=== PATIENT | female | born 2000 | race Caucasian/White ===

== ENCOUNTER 2022-05-04 11:50 | Emergency (ER) | payer BC, SELFPAY ==
--- NOTE | 2022-05-04 11:58 | ED.GENADULT ---
HPI - General Adult General Chief complaint: Upper Respiratory Infection Stated complaint: sorethroat Time Seen by Provider: 05/04/22 11:58 Source: patient Mode of arrival: ambulatory Limitations: no limitations History of Present Illness HPI narrative: 21-year-old female patient presents to [facility] with complaints of 3 day history of fullness to the ears, sore throat drainage. Patient states she coughs intermittently at times. Patient states she was told that she should be on antihistamines however she states she took him for 3 months at a time at 1 point and felt like it did not do anything so stopped taking antihistamines. Patient denies taking any [id number] medications for her symptoms at this time. Denies fevers, body aches or chills. Denies headaches, abdominal pain, nausea, vomiting or diarrhea. Related Data Home Medications Medication Instructions Recorded Confirmed No Home Medications 05/04/22 05/04/22 Allergies Allergy/AdvReac Type Severity Reaction Status Date / Time No Known Allergies Allergy Verified 05/04/22 12:12 Review of Systems Review of Systems: CONSTITUTIONAL: Denies fever, chills, or sweats. EYES: Denies visual changes, redness, or discharge. ENT: Positive rhinorrhea, congestion, sore throat, andotalgia. CARDIOVASCULAR: Denies chest pain, palpitations, or edema. RESPIRATORY: positive cough , denies dyspnea. GASTROINTESTINAL: Denies abdominal pain, nausea, vomiting, or diarrhea. GENITOURINARY: Denies dysuria or hematuria. SKIN: Denies rash or itching. MUSCULOSKELETAL: Denies back pain, joint pain, or myalgia. NEUROLOGIC: Denies headache, numbness, or weakness. PSYCHIATRIC: Denies anxiety or depression. [facility] Past Medical History Medical History (Updated 05/04/22 @ 12:32 by YANELIS Paiz) ADHD Asthma Comments At the time of my signature I agree with nursing past medical history, surgical, social, and family history. There is no relevant family history pertinent to the presenting complaint. Exam Narrative: GENERAL: Well-appearing, well-nourished, and in no acute distress. HEAD: Normocephalic, atraumatic. EYES: PERRLA and EOMI. ENT: Nares with erythema and edema noted bilateral, no rhinorrhea or epistaxis. Mucous membranes moist. posterior pharynx with no erythema, tonsillar enlargement, exudates or lesions present. Bilateral TMs are clear no erythema foreign bodies the canal. NECK: Supple. No lymphadenopathy CHEST: Clear to auscultation. No respiratory distress. HEART: Regular rate and rhythm. No murmur heard. Normal peripheral pulses. ABDOMEN: Soft, nontender, nondistended, normal active bowel sounds. EXTREMITIES: Normal range of motion. No edema. SKIN: Warm, dry, no rash. NEURO: No focal deficits. Alert and oriented x3. Course Course Level of Care: Express Care Visit Vital Signs Vital signs: Vital Signs Temperature 36.5 C 05/04/22 12:14 Pulse Rate 71 05/04/22 12:14 Respiratory Rate 16 05/04/22 12:14 Blood Pressure 111/69 05/04/22 12:14 Pulse Oximetry 100 05/04/22 12:14 Oxygen Delivery Room Air 05/04/22 12:14 Temperature 36.5 C 05/04/22 12:14 Pulse Rate 71 05/04/22 12:14 Respiratory Rate 16 05/04/22 12:14 Blood Pressure 111/69 05/04/22 12:14 Pulse Oximetry 100 05/04/22 12:14 Oxygen Delivery Room Air 05/04/22 12:14 Vital signs reviewed Medical Decision Making MDM Narrative Medical decision making narrative: Notify patient that she is negative today for strep. Her symptoms sound a lot like allergic rhinitis or allergies. Discussed with patient she can take [id number] antihistamine such as Zyrtec, Claritin or Libby apparent with a Flonase to help with symptoms. Make sure that she is using humidified air next to her bed at night and drink plenty of fluids. Patient verbalized understanding denies any other questions or concerns at this time. Differential Diagnosis Differential Diagnosis:
[2022-05-04 12:14] VITALS: BP 111/69; PULSE 71; RESP 16; TEMP 36.5; O2SAT 100
== END 2022-05-04 12:33 | disposition home or self-care (01) ==
PROVIDERS: Emergency Provider Nurse Practitioner Family
DX: J30.9 Allergic rhinitis, unspecified (principal)
CPT/HCPCS: 87081; 87880; 99213; G0463

== ENCOUNTER 2023-08-09 13:39 | Emergency (ER) | payer BC, SELFPAY ==
[2023-08-09 13:50] VITALS: BP 112/74; PULSE 71; RESP 16; TEMP 36.2; O2SAT 99
[2023-08-09 13:51] VITALS: BP 112/74; PULSE 71; RESP 16; TEMP 36.2; O2SAT 99
--- NOTE | 2023-08-09 14:23 | ED.WOUNDLAC ---
HPI - Wound/Laceration General Chief Complaint: Wound/Laceration Stated Complaint: toe nail ripped off Source: patient Mode of arrival: ambulatory Limitations: no limitations History of Present Illness HPI narrative: 22-year-old female presented complaint left great toenail avulsion after injury 3 days ago. She states the toenail is acrylic, attached to a small portion of her regrowing nail. She states at the time of injury she was able to wrap the toenail, and says it is not as loose. Pt is concerned for risk of infection. The toe pain and swelling the presented after the initial injury is now resolved per patient. She has soaked the toe in Epsom salt. Denies numbness, tingling, weakness or deformity. Related Data Home Medications Medication Instructions Recorded Confirmed levonorgestrel 21 mcg/24 hr (up to 1 device intrauterine ONCE 08/09/23 08/09/23 8 years) 52 mg intrauterine device (Mirena) Allergies Allergy/AdvReac Type Severity Reaction Status Date / Time No Known Allergies Allergy Verified 08/09/23 13:51 Review of Systems Review of Systems: CONSTITUTIONAL: Denies body aches, fever, chills, or sweats. CARDIOVASCULAR: Denies chest pain, palpitations, or edema. RESPIRATORY: Denies cough or dyspnea. SKIN: reports toe nail injury MUSCULOSKELETAL: Denies back pain, joint pain, or myalgia. NEUROLOGIC: Denies numbness, tingling, or weakness. [facility] Past Medical History Medical History ADHD Asthma Comments At time of signature, I have reviewed and agree with nursing past medical, surgical, social and family history unless otherwise noted. Please see nursing chart for further information. There is no relevant family history pertinent to the presenting complaint Exam Narrative: GENERAL: Well-appearing ENT: Mucous membranes moist. Oropharynx without edema, erythema or lesions. NECK: Supple. No lymphadenopathy CHEST: Clear to auscultation. HEART: Regular rate and rhythm. SKIN: Warm, dry. Left great toenail has acrylic nail in place, minimally loose. No swelling or erythema, nontender, no drainage NEURO: Alert and oriented x3. Course Course Emergency Course: Patient is aware of diagnosis, understands and agrees to treatment plan. Anticipatory guidance given. Patient agrees to follow-up as directed and is aware of reasons to seek care at the emergency department. Portions of this record may have been created with voice recognition software Level of Care: Express Care Visit Vital Signs Vital signs: Vital Signs Temperature 97.1 F L 08/09/23 13:50 Pulse Rate 71 08/09/23 13:50 Respiratory Rate 16 08/09/23 13:50 Blood Pressure 112/74 08/09/23 13:50 Pulse Oximetry 99 08/09/23 13:50 Temperature 97.1 F L 08/09/23 13:51 Pulse Rate 71 08/09/23 13:51 Respiratory Rate 16 08/09/23 13:51 Blood Pressure 112/74 08/09/23 13:51 Pulse Oximetry 99 08/09/23 13:51 Reviewed MDM - Wound/Laceration MDM Narrative Medical decision making narrative: Discussed physical exam findings, acrylic nail is in place firmly; pt will f/u with podiatry. Rx abx. Advised supportive measures and signs/symptoms to go to the ER. Pt is appropriate for outpt treatment and f/u. Differential Diagnosis Differential diagnosis: Likely other (nail avulsion, paronychia, fracture, dislocation) Discharge Plan Discharge Clinical Impression: Avulsed toenail Patient Disposition: Home, Self-Care Condition: Stable Instructions: Antibiotic Form, Nail Avulsion (ED) Additional Instructions: Keep the area clean and dry - cleanse with warm water and mild soap and allow to fully dry. Soak toe in warm soapy water 2 to 3 times a day Ok to apply neosporin to the site You can keep it covered with a Band-Aid keep the nail in place [facility] [address], [place], [place]
== END 2023-08-09 14:42 | disposition home or self-care (01) ==
PROVIDERS: Emergency Provider Nurse Practitioner Family
DX: S91.202A Unspecified open wound of left great toe with damage to nail, initial encounter (principal); X58.XXXA Exposure to other specified factors, initial encounter; J45.909 Unspecified asthma, uncomplicated
CPT/HCPCS: 99213; G0463

== ENCOUNTER 2023-11-10 14:32 | Emergency (ER) | payer BC, SELFPAY ==
[2023-11-10 14:43] VITALS: BP 107/70; PULSE 69; RESP 16; TEMP 37; O2SAT 100
--- NOTE | 2023-11-10 14:44 | ED.GENADULT ---
HPI - General Adult General Chief complaint: Urogenital-Female Stated complaint: FREQUENT URINATION/ABD CRAMPING/HEADACHE Time Seen by Provider: 11/10/23 14:44 Source: patient, RN notes reviewed and old records reviewed Mode of arrival: ambulatory Limitations: no limitations History of Present Illness HPI narrative: 22-year-old female to [facility] for complaint of intermittent lower abdominal cramping and intermittent nausea the past 3 months. Patient reports that she saw OBGYN since onset of symptoms and had an ultrasound her ovaries completed. Patient reports that ovaries and IUD placement were both cleared through ultrasound. Patient also endorsing frequent urination over past 2 weeks. Patient denies vomiting, bowel changes, fever, flank pain, allergies, pertinent medical history. Patient able to tolerate fluids by mouth. Patient resting comfortably in exam room in no acute distress. Respirations even and nonlabored. Related Data Home Medications Medication Instructions Recorded Confirmed levonorgestrel 21 mcg/24 hr (up to 1 device intrauterine ONCE 08/09/23 11/10/23 8 years) 52 mg intrauterine device (Mirena) Allergies Allergy/AdvReac Type Severity Reaction Status Date / Time No Known Allergies Allergy Verified 11/10/23 16:59 Review of Systems Review of Systems: All systems reviewed & are unremarkable except as noted in HPI and below Constitutional: Constitutional: Reports no additional constitutional complaints Eyes: Eyes: Reports no additional eye complaints ENT: Reports system reviewed and no additional complaints, except as documented Cardiovascular: Cardiovascular: Reports no additional cardiovascular complaints, Denies chest pain and Denies dyspnea Respiratory: Respiratory: Reports no additional respiratory complaints, Denies cough and Denies dyspnea Gastrointestinal: Gastrointestinal: Reports GI cramping and Reports nausea Genitourinary: Comments: Frequent urination Musculoskeletal: Musculoskeletal: Reports no additional musculoskeletal complaints Neurologic: Reports system reviewed and no additional complaints, except as documented Psychiatric: Psychiatric: Reports no additional psychiatric complaints PMFSH Past Medical History Medical History ADHD Asthma Comments At the time of my signature, I reviewed and agree with the nursing past medical, surgical, social, and family history. There is no relevant family history pertinent to the patient complaint. Exam Const: General: cooperative, healthy appearing, no acute distress, well developed, alert, well groomed and well nourished Nutritional Appearance: well nourished Orientation/consciousness: patient oriented x3 Limitations: no limitations HENMT: Head: normal to inspection Ears: external ears normal Face/Nose/Sinus: Normal external nose present, Normal nares present, normal facial exam, No erythema and No edema Face and sinus: normal facial exam, no erythema and no edema Mouth: Yes Normal oral and palatal mucosa present Eyes: General: appearance normal, both eyes and all related structures Neck: Neck: normal visual inspection, full ROM and no meningeal signs Lymphatic: no lymphadenopathy noted and no lymphedema noted Chest: Chest palpation & inspection: normal inspection of the chest Resp: Effort & Inspection: normal respiratory effort and able to speak in complete sentences Auscultation: clear to auscultation bilaterally Cardio: Jugular venous distension: no JVD Rate: regular rate Rhythm: regular rhythm GI: Inspection: normal to inspection, non-distended, no visible herniation, no visible pulsation and No visible peristalsis GI Palp: Yes Soft to palpation and No Guarding due to palpation present (GI) : General: Yes no CVA tenderness Back/Spine/Pelvis: Cervical Spine: cervical ROM normal Skin: General skin exam: normal color, no rashes or
[2023-11-10 14:52] LABS: EDUAAPPEAR Clear; EDUABILI Negative (Negative); EDUABLOOD Negative (Negative); EDUACOLOR1 Light/Pale; EDUAGLUCOSE Negative (Negative); EDUAKETONE Negative (Negative); EDUALEUKO Negative (Negative); EDUANITRATE Negative (Negative); EDUAPH 5.5; EDUAPROTEIN Negative (Negative); EDUASPGRAVITY 1.015; EDUAUROBILI 0.2
[2023-11-10 15:45] LABS: EDCOVIDSCREEN Negative (Negative); EDINFLUASCREEN Negative (Negative); EDINFLUBSCREEN Negative (Negative)
== END 2023-11-10 16:03 | disposition home or self-care (01) ==
PROVIDERS: Emergency Provider Nurse Practitioner Family
DX: R10.9 Unspecified abdominal pain (principal); B34.9 Viral infection, unspecified; Z20.822 Contact with and (suspected) exposure to COVID-19; J45.909 Unspecified asthma, uncomplicated
CPT/HCPCS: 81003; 87635; 87804; 99212; G0463

== ENCOUNTER 2023-11-10 16:56 | Emergency (ER) | payer BC, SELFPAY ==
--- NOTE | ~2023-11-10 | CT_ITS ---
EXAMINATION: CT abdomen pelvis w con DATE: 11/10/2023 19:26 INDICATION: lower abdominal pain, diarrhea TECHNIQUE: Computed tomography (CT) of the abdomen and pelvis was performed with 100 mL Omnipaque-350 intravenous contrast. Automated exposure control and iterative reconstruction technique were employe d. The dose-length product was 330.99 mGy-cm. COMPARISON: None. FINDINGS: Lower thorax: Dependent atelectasis Liver: Normal. Biliary/Gallbladder: Gallbladder is normal. No bile duct dilation. Pancreas: No mass or duct dilation. Spleen: Normal. Adrenals:No mass. Kidneys: No suspicious mass, obstructing stone, or hydronephrosis. Simple left midpole cyst. GI tract: Moderate distal esophageal and gastric wall edema. No small or large bowel dilation. Normal appendix. Mesentery/Peritoneum: No ascites, mass, or free air. Retroperitoneum: No mass. Pelvis: Pelvic organs are within normal limits. IUD, in good position. Soft Tissues: Soft tissues and body wall unremarkable. Bones: No acute osseous finding. IMPRESSION: Moderate esophagitis/gastritis. Otherwise unremarkable CT abdomen and pelvis findings. Reviewed, dictated and finalized at location K.
[2023-11-10 17:03] VITALS: BP 112/76; PULSE 72; RESP 18; TEMP 36.4; O2SAT 99
--- NOTE | 2023-11-10 17:20 | ECG_ITS ---
Test Date: 2023-11-10 17:51:09 Measurements Intervals [place] Rate: 53 P: 42 CO: 151 QRS: 75 QRSD: 91 T: 49 QT: 439 QTc: 416 Interpretive Statements SINUS BRADYCARDIA MINIMAL Q WAVES- INF/LAT LEADS BASELINE ARTIFACT- I, II, AVR BORDERLINE ECG No previous ECG available for comparison Electronically Signed On 11-10-2023 20:29:14 CDT by Laron Greenberg D.O.
[2023-11-10 17:36] LABS: BEDSIDEPREGUCG Negative (Negative)
[2023-11-10 17:41] LABS: Basophils Percent Auto 0.5 % (0.2-1.2); Eosinophils Absolute Auto 0.1 K/mm3 (0-0.3); Eosinophils Percent Auto 1.1 % (0-4.4); Hematocrit 42.2 % (37.0-47.0); Hemoglobin 14.2 g/dL (12.0-15.0); Immature Granulocyte Absolute 0.01 K/mm3 (0.00-0.031); Immature Granulocyte Percent A 0.1 % (0-0.5); Lymphocytes Absolute Auto 3.17 K/mm3 (0.9-3.2); Mean Corpuscular HGB Conc 33.6 g/dl (32-36); Mean Corpuscular Hemoglobin 29.9 pg (26-34); Mean Corpuscular Volume 88.8 fl (80-100); Mean Platelet Volume 10.8 fl (7.4-10.4); Monocytes Absolute Auto 0.6 K/mm3 (0.1-0.6); Monocytes Percent Auto 6.8 % (2.6-8.5); Neutrophils Absolute Auto 4.3 K/mm3 (1.3-6.7); Neutrophils Percent Auto 52.5 % (45.5-73.1); Platelet Count Result 323 k/mm3 (150-375); Red Blood Count 4.75 M/mm3 (4.2-5.4); Red Cell Distribution Width 12.3 % (11.5-14.5); White Blood Count 8.1 K/mm3 (4.5-10.0)
[2023-11-10 17:43] LABS: Add Urine Microscopic? NO; Appearance Urine Clear (Clear); Bilirubin Urine Negative (Negative); Blood Urine Negative (Negative); Color Urine Yellow (Yellow); Glucose Urine UA Negative (Negative); Ketones Urine Negative (Negative); Leukocyte Esterase Ur Negative LEU/UL (Negative); Nitrate Urine Negative (Negative); Protein Urine Negative (Negative); Specific Grav Ur 1.017 (1.001-1.035); Urobilinogen Urine 0.2 mg/dL (<2.0); pH Urine 7.5 (5.0-9.0)
[2023-11-10 17:51] LABS: Alanine Aminotransferase 15 U/L (6-35); Albumin Level 4.8 g/dL (3.5-5.1); Alkaline Phosphatase 79 U/L (38-126); Anion Gap 11 mmol/L (4-12); Aspartate Amino Transferase 28 U/L (14-36); Bilirubin,Total 0.2 mg/dL (0.2-1.3); Blood Urea Nitrogen 16 mg/dL (7-17); Calcium 9.4 mg/dL (8.4-10.2); Carbon Dioxide 28 mmol/L (22-30); Chloride 99 mmol/L (98-107); Estimated CRCL calculation 82 ml/min; Estimated Glomerular Filt Rate > 60; Glucose 90 mg/dL (65-110); Lipase 204 U/L (23-300); Potassium 3.3 mmol/L (3.4-5.0); Sodium 138 mmol/L (137-145)
--- NOTE | 2023-11-10 18:12 | ED.ABDPAIN ---
HPI - Abdominal Pain General Chief Complaint: Abdominal Pain Stated Complaint: dizziness, nausea, abd pain, lumbar pain Time Seen by Provider: 11/10/23 17:23 History of Present Illness HPI narrative: 22-year-old female presenting with abdominal pain. States that for the last 3 months or so she has had intermittent lower abdominal cramping. She saw her OBGYN who performed an ultrasound and told her that her IUD was in its proper place and her ovaries are normal. Unfortunately she continues to have this lower abdominal pain so she went to urgent care today who advised she come to the ER. Reports intermittent diarrhea and constipation. She describes the abdominal pain is crampy. Denies abnormal vaginal discharge or bleeding. No dysuria or hematuria. No vomiting the reports intermittent nausea. No fevers or chills. No further complaints. Related Data Home Medications Medication Instructions Recorded Confirmed levonorgestrel 21 mcg/24 hr (up to 1 device intrauterine ONCE 08/09/23 11/10/23 8 years) 52 mg intrauterine device (Mirena) Allergies Allergy/AdvReac Type Severity Reaction Status Date / Time No Known Allergies Allergy Verified 11/10/23 16:59 Review of Systems Review of Systems: All systems reviewed & are unremarkable except as noted in HPI and below PMFSH Past Medical History Medical History ADHD Asthma Exam Narrative: GENERAL: Well-appearing, well-nourished, and in no acute distress. HEAD: Normocephalic, atraumatic. EYES: PERRLA and EOMI. ENT: Mucous membranes moist. NECK: Supple. CHEST: Clear to auscultation. No respiratory distress. HEART: Regular rate and rhythm ABDOMEN: Soft, +mild tenderness of RLQ/suprapubic/LLQ; no guarding or rebound EXTREMITIES: Normal range of motion. No edema. SKIN: Warm, dry, no rash. NEURO: No focal deficits. Alert and oriented x3. PSYCH: Normal mood and affect. Course Vital Signs Vital signs: Vital Signs Temperature 97.6 F 11/10/23 17:03 Pulse Rate 72 11/10/23 17:03 Respiratory Rate 18 11/10/23 17:03 Blood Pressure 112/76 11/10/23 17:03 Pulse Oximetry 99 11/10/23 17:03 Oxygen Delivery Room Air 11/10/23 17:03 Temperature 97.6 F 11/10/23 17:03 Pulse Rate 62 11/10/23 19:09 Respiratory Rate 18 11/10/23 19:09 Blood Pressure 105/71 11/10/23 19:09 Pulse Oximetry 100 11/10/23 19:09 Oxygen Delivery Room Air 11/10/23 17:03 MDM - Abdominal Pain MDM Narrative Medical decision making narrative: 22-year-old female presenting with several months of intermittent crampy lower abdominal pain. Vitals within normal limits. Exam remarkable for the above. Blood work with mild hypokalemia. Lipase is normal. UA is unremarkable. CT abdomen pelvis shows esophagitis and gastritis. No other abnormalities noted. Will start the patient on Pepcid for the next few weeks. Will also start her on Bentyl for the abdominal cramping. Recommend GI follow-up. Also recommend PCP follow-up. Appropriate return precautions given. Patient is agreeable this plan. Discharged in stable condition. Differential Diagnosis Differential diagnosis: Likely abdominal pain, constipation, diverticulitis and gastroenteritis Medical Records Attestation: I reviewed the patient's medical records. Lab Data Attestation: I reviewed the patient's lab results. 11/10/23 17:34 11/10/23 17:34 Labs: Lab Results 11/10/23 Range/Units 17:34 WBC 8.1 (4.5-10.0) K/mm3 RBC 4.75 (4.2-5.4) M/mm3 Hgb 14.2 (12.0-15.0) g/dL Hct 42.2 (37.0-47.0) % MCV 88.8 (80-100) fl MCH 29.9 (26-34) pg MCHC 33.6 (32-36) g/dl RDW 12.3 (11.5-14.5) % Plt Count 323 (150-375) k/mm3 MPV 10.8 H (7.4-10.4) fl Immature Gran % (Auto) 0.1 (0-0.5) % Neut % (Auto) 52.5 (45.5-73.1) % Lymph % (Auto) 39.0 (18.3-44.2) % [place] % (Auto) 6.8 (2.6-8.5) % Eos %
[2023-11-10] MEDS: SODIUM CHLORIDE 0.9% IV 1,000 ML 999 ML IV CONT (19:07)
[2023-11-10] MEDS: ONDANSETRON INJ 4 MG/2 ML VIAL IV PUSH (19:08)
[2023-11-10] MEDS: KETOROLAC 15 MG/ML VIAL (*BKC) IV PUSH (19:08)
[2023-11-10 19:09] VITALS: BP 105/71; PULSE 62; RESP 18; O2SAT 100
[2023-11-10] MEDS: FAMOTIDINE 20 MG TABLET PO (22:17)
[2023-11-10] MEDS: DICYCLOMINE HCL 10 MG CAPSULE 20 MG PO (22:17)
[2023-11-10 22:29] VITALS: BP 108/64; PULSE 66; RESP 18; TEMP 36.6; O2SAT 100
== END 2023-11-10 22:30 | disposition home or self-care (01) ==
PROVIDERS: Emergency Medicine; Emergency Provider Emergency Medicine
DX: K29.70 Gastritis, unspecified, without bleeding (principal); J45.909 Unspecified asthma, uncomplicated; Z97.5 Presence of (intrauterine) contraceptive device
CPT/HCPCS: 36415; 74177; 80053; 81003; 81025; 83690; 85025; 87635; 87804; 93005; 96361; 96374; 96375; 99284; A9270; J1885; J2405; J7030; Q9967

== ENCOUNTER 2024-09-27 10:36 | Emergency (ER) | payer OTHER, SELFPAY ==
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
[2024-09-27 10:38] VITALS: BP 123/59; PULSE 73; RESP 16; TEMP 36.4; O2SAT 100
[2024-09-27 10:49] VITALS: BP 114/68; PULSE 72; RESP 14; O2SAT 100
[2024-09-27 10:51] VITALS: BP 114/68; O2SAT 99
--- OUTSIDE RECORDS SUMMARY | 2024-09-27 11:04 | XMS_ITS | Clinical Summary ---
Author Organization [facility] [place] Address [address] [place] [address] Phone Care Team Providers Care Learning Support Aide Name Role Phone Aly Burnham MD Primary Care Provider [phone] Allergies Active Allergy Reactions Criticality Noted Date Comments Cat Dander Hives,Itching High 01/22/2022 Wheat Bran Abdominal Pain Low 10/04/2015 Medications acetaminophen (TYLENOL) 500 mg tablet Take 500 mg by mouth every 6 hours as needed. Active cyanocobalamin, vitamin B-12, (VITAMIN B12 ORAL) Take 30 mg by mouth. Active Adapalene (Differin) 0.1 % Cream Apply to affected area daily at bedtime. 45 Gram 1 07/24/2021 3:21 PM CDT 07/12/19 22 Active busPIRone (BUSPAR) 10 mg tabletIndications :Anxiety state Take 1 Tablet (10 mg) by mouth 3 times daily. 90 Tablet 1 01/23/20 22 Active MAGNESIUM CITRATE ORAL Take by mouth. Activ e albuterol sulfate HFA 90 mcg/actuation aerosol inhalerIndication s:Environmental allergies Take 2 Puffs by inhalation every 6 hours as needed for Shortness of Breath. 8.5 Gram 2 05/31/19 23 Active lisdexamfetamine (Vyvanse) 20 mg capsuleIndication s:Attention deficit hyperactivity disorder (ADHD), predominantly inattentive type Take 1 Capsule (20 mg) by mouth daily in the morning. Max Daily Amount: 20 mg 60 Capsule 10/21/19 23 Active GLUTAMINE ORAL Take by mouth. Active levonorgestreL (Mirena) 21 mcg/24 hours (8 yrs) 52 mg IUD by Intrauterine route. Active Active Problems Patient Care Coordination No te Formatting of this note migh t be different from the original. Physical - 09/09/21, 05/30/22 Problem Noted Date Diagnosed Date Mirena 11/20/22 11/20/2022 Elevated testosterone level in female 05/30/2022 CALIN (generalized anxiety disorder) 05/30/2022 MDD (major depressive disorder) 05/30/2022 Vitamin B12 deficiency (non anemic) 09/09/2021 Impaired glucose regulation 09/09/2021 Environmental allergies 07/16/2020 Attention deficit hyperactiv ity disorder (ADHD), predominantly inattentive type 07/16/2020 Migraine with aura and witho ut status migrainosus, not intractable 07/16/2020 Resolved Problems Problem Noted Date Diagnosed Date Resolved Date Elevated testosterone level 01/09/2022 11/04/2022 Menorrhagia with regular cycle 09/09/2021 11/04/2022 Abnormal weight gain 09/09/2021 023 Encounters Date Type Department Care Team Description 09/07/2024 External Device Data [facility] ABSTRACTION Provider, Abstract 09/06/2024 External Device Data [facility] ABSTRACTION Provider, Abstract 08/09/2024 External Device Data [facility] ABSTRACTION Provider, Abstract 07/14/2024 External Device Data [facility] ABSTRACTION Provider, Abstract 07/14/2024 External Device Data [facility] ABSTRACTION Provider, Abstract 07/13/2024 External Device Data [facility] ABSTRACTION Provider, Abstract 07/12/2024 External Device Data [facility] ABSTRACTION Provider, Abstract from Last 3 Months Immunizations Immunization Administration Dates Next Due (ADACEL/BOOSTRIX)(10 YR UP) TDAP VACCINE, 0.5ML, IM 07/16/2020,09/20/2010 (GARDASIL)(9-45 YRS) HUMAN PAPILLOMAVIRUS VACCINE, TYPES 6, 11, 16, 18, QUADRIVALENT (4VHPV), 3 DOSE, IM 03/24/2011,12/20/2010,09/20/2010 (HAVRIX/VAQTA)(12 MO-18 YRS) HEPATITIS A VACCINE 0.5 ML PED/ADOL 2 DOSE, IM 10/25/2011,09/20/2010 (INFANRIX)(6 WKS-6 YRS) DIPT HERIA, TETANUS TOXOIDS, AND ACCELLULAR PERTUSSIS VACCINE (DTAP), 0.5 ML IM 01/12/2004,04/13/2000,07/09/1999,04/29,03/01/1999 (IPOL)(6 WKS AND UP) POLIOVI RICHA VACCINE, INACTIVATED (IPV), 3 DOSE, SUBCUT OR IM 10/06/2013,01/14/2000,04/30/1999,03/01 (M-M-R II/PRIORIX)(12 MO UP) MEASLES, MUMPS AND RUBELLA VIRUS VACCINE, 0.5 ML IM/SUBCUT 10/06/2013,01/14/2000 (PFIZER)(12 YR UP) COVID-19 VACCINE - EMERGENCY USE AUTHORIZATION, MRNA, [id number](PF) 30 MCG/0.3 ML IM SUSP 11/15/2020,10/25/2020 (PREVNAR 13)(6 WKS UP) PNEUM OCOCCAL CONJUGATE (PCV13) 0.5 ML, IM 04/13/2000,01/14/2000 (RECOMBIVAX HB/ENGERIX-B)(0- 19 YRS) HEPATITIS B VACCINE 5 MCG/0.5 ML OR 10 MCG/0.5 ML PED OR ADOL 3 DOSE (PF), IM 04/13/2000,04/30/1999,03/01/1999 (VARIVAX)(12 MOS UP)VARICELL A VIRUS VACCINE (PF) 0.5 ML, SUB CUT 09/20/2010,01/14/2000 Hemophilus influenza b vacci ne (Hib), PRP-D conjugate, for booster use only, intramuscular use 04/13/2000,04/30/1999,03/01/1999 INFLUENZA VACCINE QUADRIVALE NT 6 MOS UP PF IM 01/05/2015 Influenza Seasonal Unspecifi ed Formulation IM 12/20/2010 Influenza Seasonal Unspecifi ed Formulation PF IM 11/21/2011 Influenza, Unspecified Formulation 01/23,12/27/2002,02/26/2002,01/14 Meningococcal Polysaccharide Vaccine SQ 10/07/2016,09/20/2010 Skin Test TB 01/12/2004 Family History Medical History Relation Name Comments Asthma Father Jermaine Cabezas Cancer Father Jermaine Cabezas Thyroid cancer was removed Other Father Jermaine Cabezas Adhd Hypertension Mother Glenroy Chawla Thyroid Disease Mother Glenroy Chawla Diabetes Paternal Grandmother Joyce Ordonez Relation Name Status Comments Father Jermaine Cabezas Alive Thyroid Cancer 2011 Mother Glenroy Chawla Alive Paternal Grandmother Joyce Ordonez Sister Alive Social History Tobacco Use Types Packs/Day Years Used Date Smoking Tobacco: Never Smokeless Tobacco: Never Tobacco Cessation:Counseling Given: Not Answered Alcohol Use Standard Drinks/Week Comments Not Currently 0 (1 standard drink = 0.6 oz pure alcohol) I dont drink.Will do so however once every 3-4 months Comments No Sex and Gender Information Value Date Recorded Sex Assigned at Not on file Legal Sex Female 3:22 PM CDT Gender Identity Not on file Sexual Orientation Not on file Last Filed Vital Signs Vital Sign Reading Time Taken Comments Blood Pressure 116/66 09/17/2023 7:50 AM CDT Pulse 87 09/17/2023 7:50 AM CDT Temperature 36.4 C (97.5 F) 09/17/2023 7:50 AM CDT Respiratory Rate 12 09/17/2023 7:50 AM CDT Oxygen Saturation 99% 09/17/2023 7:50 AM CDT Inhaled Oxygen Concentration - - Weight 64.9 kg (143 lb) 09/17/2023 7:50 AM CDT Height 160 cm (5' 3) 09/17/2023 7:50 AM CDT Body Mass Index 25.33 09/17/2023 7:50 AM CDT Plan of Treatment Health Maintenance Due Date Last Done Comments HPV/Cotest (21-29) 12/30/2019 COVID-19 Vaccine (2023-2 5 season) 2023 11/15/2020, 10/25/2020 CERVICAL CANCER SCREENING 06/26/2024 PAP SMEAR 06/26/2024 06/26/2021 INFLUENZA VACCINE (#1) 2024 5, 11/21/2011, 12/20/2010 DTAP/TDAP/TD VACCINES (8 - T d or Tdap) 07/16/2030 07/16/2020, 09/20/2010, 01/12/2004, Additional history exists HEPATITIS B VACCINES Completed 04/13/2000, 04/30/1999, 03/01/1999 HPV VACCINES Completed 03/24/2011, 11/24, 09/20/2010 CHLAMYDIA SCREENING (ANNUAL) 11-24 YEARS Discontinued 09/17/2023, 11/04/2022 Procedures Procedure Name Priority Date/Time Associated Diagnosis Comments VAGINOSIS/VAGINITI S PANEL PLUS Routine 09/17/2023 10:24 AM CDT Breakthrough bleeding associated with intrauterine device (IUD) CERV/VAG CYTO AGE BASED SCREEN PAP W CT/NG Routine 06/26/2021 2:54 PM CDT Well woman exam with routine gynecological exam Screening for STDs (sexually transmitted diseases) from Last 3 Months or Most Recently Relevant to Health Maintenance Results * VAGINOSIS/VAGINITIS PANEL PLUS (09/17/2023 10:24 AM CDT) BACTERIAL VAGINOSIS NEGATIVE NEGATIVE [facility] VALERIE SPECIES NOT DETECTED NOT DETECTED [facility] VALERIE GLABRATA NOT DETECTED NOT DETECTED [facility] Comment: Valerie species C. albicans, C. tropicalis, C. parapsilosis, and/or C. dubliniensis can be detected, but not differentiated, in the Valerie spp. result. TRICHOMONAS VAGINALIS (TV), TMA NOT DETECTED NOT DETECTED [facility] [place] C TRAC RNA NOT DETECTED NOT DETECTED [facility] N.GONORRHOEAE RNA, TMA NOT DETECTED NOT DETECTED [facility] Comment: For additional information, please refer to https://education.TV TubeX/faq/YMS703 (This link is being provided for information/ educational purposes only.) Test Performed at: [facility] [address] [phone] Thelma Sierra MD Genital SPECIMEN FROM VAGINA / Unknown 09/17/2023 10:24 AM CDT 09/17/2023 6:30 PM CDT us Alivia Mann DO MICROBIOLOGY - GENERAL ORDERA BLES Final Result [facility] [phone] [facility] [address] [place] [address] * CERV/VAG CYTO AGE BASED SCREEN PAP W CT/NG (06/26/2021 2:54 PM CDT) COMMENT (PAP): [facility] Comment: This order for age-based cervical cancer and STI screening follows ACOG guidelines(PB 168, 140, DTL575). See individual assays for performing site location. CLINICAL INFORMATION [facility] Comment:Information not prov ided LAST MENSTRUAL PERIOD [facility] Comment:INFORMATION NOT PROV IDED PREV PAP: [facility] Comment:INFORMATION NOT PROV IDED PREV BX: [facility] Comment:INFORMATION NOT PROV IDED SOURCE [facility] Comment:Endocervix ADEQUACY: [facility] Comment: Satisfactory for evaluation. Endocervical/transformation zone component present. Age and/or menstrual status not provided PAP INTERP [facility] Comment:Negative for intraep ithelial lesion or malignancy. COMMENT (PAP TEST) [facility] Comment: This Pap test has been evaluated with computer assisted technology. SOFTWARE WRITER: [facility] Comment: TMK, CT(ASCP) CT screening location: [place] [address] [place] [address] EXPLANATORY NOTE [facility] Comment: EXPLANATORY NOTE: The Pap is a screening test for cervical cancer. It is not a diagnostic test and is subject to false negative and false positive results. It is most reliable when a satisfactory sample, regularly obtained, is submitted with relevant clinical findings and history, and when the Pap result is evaluated along with historic and current clinical information. C TRAC RNA NOT DETECTED NOT DETECTED [facility] N.GONORRHOEAE RNA, TMA NOT DETECTED NOT DETECTED [facility] COMMENT INFECTIOUS DISEASE [facility] Comment: The analytical performance characteristics of this assay, when used to test SurePath(TM) specimens have been determined by [facility]. The modifications have not been cleared or approved by the FDA. This assay has been validated pursuant to the CLIA regulations and is used for clinical purposes. For additional information, please refer to https://education.TV TubeX/faq/BNJ292 (This link is being provided for information/ educational purposes only.) Test Performed at: [facility] [address] [place] [address] Dangelo Olsen D.O., MPH SL Genital SWAB OF ENDOCERVIX / Unknown 06/26/2021 2:54 PM CDT 06/27/2021 3:30 AM CDT Renuka Navarrete NP PATHOLOGY/CYTOLOGY ORDERABLES Fi nal Result [facility] [phone] from Last 3 Months or Most Recently Relevant to Health Maintenance Insurance RX [facility] [employer] Care Teams Learning Support Aide Relationship Specialty Start Date End Date Aly Burnham [place] [id number] [place] [phone] PCP - General Internal Medicine 07/16/20
--- OUTSIDE RECORDS SUMMARY | 2024-09-27 11:04 | XMS_ITS | Clinical Summary ---
Author Organization [facility] Address [address] [place] [address] Care Team Providers Care Industrial Truck Operator Name Role Phone Unavailable Primary Care Provider Unavailabl e Source Comments [facility],non-owned Affiliates and Associated Physician Practices is amultiple site organization consisting of ambulatory clinics and hospital sitesin [place], [place], [place] and [place]. This disclosure is being madepursuant to the Care Everywhere program and may not contain all information available regarding this patient. Last updated 17.[facility] Allergies Active Allergy Reactions Criticality Noted Date Comments Peanut-Derived 10/04/2015 Soy Allergy 10/04/2015 Wheat Bran 10/04/2015 Medications * Be aware that medications may not be up to date on this document. Alwaysverify current medications with the patient. VIENVA 0.1-20 MG-MCG tablet TAKE 1 TABLET BY MOUTH ONCE DAILY 28 tablet 11 8 Active methylphenidate 24hr (RITALIN LA) 30 MG capsule Take 30 mg by mouth every morning Active albuterol HFA (PROVENTIL;VENT VICKEY;PROAIR) 108 (90 Base) MCG/ACT inhaler Inhale 2 puffs by mouth every 6 hours as needed for Shortness of Breath or Wheezing 6 g 2 9 Active Active Problems Problem Noted Date Diagnosed Date Screening for condition 10/06/2013 Overview (11/23/2014): HGB 12.3 10/06/13 Allergic rhinitis 09/20/2010 Overview (09/20/2010): Allergy panel positive for cats, grass, dust mites, mold, trees, and ragweed 09/20/10 refer to Cd Mixer Helper, Waleyrtec 10 mg po q day. Well child visit 09/20/2010 Overview (10/19/2015): 9 y/o 09/20/10 10 yr 10/25/11 12 yr 10/06/13 13 yr 09/21/14 14 yr 10/04/15 Wears glasses 07/23/2010 Overview (08/20/2010): [facility] Ophthalmology ADD (attention deficit disorder) 05/11/2009 Overview (12/22/2017): 05/11/09 Vyvanse 20 mg 07/20/09 Strattera 25 mg 11/13/09 Strattera 25 mg 06/18/10 Strattera 35 mg 12/20/10 Strattera 40 mg 03/24/11 Strattera 40 mg 03/23/14 Daytrana 20 mg (not covered by insurance)-> Concerta 27 mg q am 05/23/14 concerta 36 mg, RTC 1-2 mo 09/21/14 concerta 36 mg, RTC 3 mos 01/05/15 Metadate CD 30 mg po q am, RTC 1-2 mos (decreased appetite with Concerta) 05/14/15 Metadate CD 30 mg po q am, RTC 6 mos Resolved Problems Problem Noted Date Diagnosed Date Resolved Date Dysmenorrhea 05/23/2014 10/12/2017 Abdominal pain 05/09/2011 10/12/2017 Urticaria 06/18/2010 10/12/2017 Overview (08/20/2010): 06/18/10 Immunocap 07/23/10 Allergy profile positive for cats, dust mites, grass (bermuda, Chauncey, Brian), mold, trees (elm,maple,oak), ragweed Wrist sprain 11/13/2009 10/12/2017 Palpitations 07/20/2009 10/12/2017 Immunizations Immunization Administration Dates Next Due INFLUENZA VACCINE, TRIV. (AF LURIA, FLUZONE TRIVALENT; 6MO+) (IIV3) 12/20/2010 DPT 01/12/2004, 1,07/09/1999,04/29,03/01/1999 HEP A PEDS 2 DOSE 10/25/2011,09/20/2010 HEP B VACCINE, PED/ADOL 04/13/2000,04/30/1999, HIB BOOSTER 04/13/2000,04/30/1999,03/01/1999 Human Papilloma Virus Sean valent Vaccine 03/24/2011,12/20/2010,09/20/2010 INFLUENZA VACCINE 01/23/2007, 3,02/26/2002,01/14 INFLUENZA VACCINE, QUADR. (F LUZONE; FLULAVAL; FLUARIX; AFLURIA QUADRIVALENT; 6MO+), 0.5 ML (IIV4) 01/05/2015 MENINGOCOCCAL ACWY (MCV4P) VAC IM 10/07/2016, MMR 10/06/2013,01/14/2000 PNEUMOCOCCAL CONJ, PEDS 04/13/2000,01/14/2000 POLIO IPV 10/06/2013, 0,04/30/1999,03/01 PPD 01/12/2004 TDAP (7yrs+) 09/20/2010 VARICELLA 09/20/2010,01/14/2000 Family History Medical History Relation Name Comments Arthritis Father Kidney Disease Father Arthritis Maternal Grandfather Heart Disease Maternal Grandfather Hypercholesterolemia Maternal Grandfather Hypertension Maternal Grandfather Kidney Disease Maternal Grandfather Arthritis Maternal Grandmother Diabetes Maternal Grandmother Heart Disease Maternal Grandmother Hypercholesterolemia Maternal Grandmother Hypertension Maternal Grandmother Migraine Maternal Grandmother Rashes/Skin Problems Maternal Grandmother Allergies Mother Heart Disease Mother Hypertension Mother Migraine Mother Thyroid Disease Mother Relation Name Status Comments Father Maternal Grandfather Maternal Grandmother Mother Social History Tobacco Use Types Packs/Day Years Used Date Smoking Tobacco: Never Smokeless Tobacco: Never Alcohol Use Standard Drinks/Week Comments Never 0 (1 standard drink = 0.6 oz pur e alcohol) AUDIT-C Answer Date Recorded Frequency of Alcohol Consumption Never 10/09/2018 Average Number of Drinks Not on file 019 Frequency of Binge Drinking Not on file 09/23 Comments No Sex and Gender Information Value Date Recorded Sex Assigned at Not on file Legal Sex 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 Gender Identity Not on file Sexual Orientation Not on file Last Filed Vital Signs Vital Sign Reading Time Taken Comments Blood Pressure 94/60 10/21/2018 10:29 AM CDT Pulse 85 10/21/2018 10:29 AM CDT Temperature 36.9 C (98.4 F) 10/09/2018 12:27 PM CDT Respiratory Rate 20 10/09/2018 12:27 PM CDT Oxygen Saturation 98% 10/21/2018 10:29 AM CDT Inhaled Oxygen Concentration - - Weight 55.8 kg (123 lb) 10/21/2018 10:29 AM CDT Height 157.5 cm (5' 2) 10/21/2018 10:29 AM CDT Body Mass Index 22.5 10/21/2018 10:29 AM CDT Plan of Treatment Health Maintenance Due Date Last Done Comments HIV SCREENING 2013 CHLAMYDIA/GONORRHEA SCREENING 2014 HEPATITIS C SCREENING 12/24/2016 DTAP/TDAP/TD VACCINES (7 - Td or Tdap) 09/20/2020 09/20/2010, 01/12/2004, 04/13/2000, Additional history exists COVID-19 VACCINE ( season) 2023 DEPRESSION SCREENING 02/24/2024 INFLUENZA VACCINE (#1) 2024 5, 12/20/2010, 01/23/2007, Additional history exists ZOSTER VACCINE (1 of 2) 2048 HEPATITIS B VACCINE Completed 04/13/2000, 04/30/1999, 03/01/1999 HIB VACCINE Completed 04/13/2000, 08/1999, 03/01/1999 PNEUMOCOCCAL VACCINE Completed 04/13/2000, 01/14/20 00 HPV VACCINE Completed 03/24/2011, 11/24, 09/20/2010 MENINGOCOCCAL GROUPS A/C/Y/W VACCINE Completed 10/07/2016, 09/20/2010 MENINGOCOCCAL (Group B) VACCINE SHARED DECISION-MAKING Aged Out No longer eligible based on patient's age to complete this topic Goals Goal Patient Goal Type Associated Problems Recent Progress Patient-Stated? Author Use safety retraint in car Lifestyle On track( 017 10:12 AM NURSING UNIT CLERK) No Gayle Barkley Take recommended medication(s) Lifestyle On track( 017 3:37 PM CDT) No Cesilia Hines Insurance [employer]
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
[2024-09-27] MEDS: ONDANSETRON HCL ODT 4 MG TABLET PO (11:37)
[2024-09-27] MEDS: ACETAMINOPHEN 500 MG TABLET 1000 MG PO (11:37)
--- NOTE | 2024-09-27 11:50 | PC.NURSE ---
c collar removed at this time, after discussing cervical spine results with Lauren PAULSON
--- OUTSIDE RECORDS SUMMARY | 2024-09-27 12:03 | XMS_ITS | Clinical Summary ---
Author Organization [facility] [place] Address [address] [place] [address] Phone Care Team Providers Care Lathe Turner Name Role Phone Aly Burnham MD Primary Care Provider [phone] Allergies Active Allergy Reactions Criticality Noted Date [...] COVID-19 VACCINE - EMERGENCY USE AUTHORIZATION, MRNA, [id number](PF) 30 MCG/0.3 ML IM SUSP 11/15/2020,10/25/2020 (PREVNAR [...] 10:24 AM CDT) BACTERIAL VAGINOSIS NEGATIVE NEGATIVE [facility] VALERIE SPECIES NOT DETECTED NOT DETECTED [facility] VALERIE GLABRATA NOT DETECTED NOT DETECTED [facility] Comment: Valerie species C. albicans, C. tropicalis, C. parapsilosis, and/or C. dubliniensis can be detected, but not differentiated, in the Valerie spp. result. TRICHOMONAS VAGINALIS (TV), TMA NOT DETECTED NOT DETECTED [facility] C TRAC RNA NOT DETECTED NOT DETECTED [facility] N.GONORRHOEAE RNA, TMA NOT DETECTED NOT DETECTED [facility] Comment: For additional information, please refer to https://education.[employer]/faq/QQA603 (This link is being provided for information/ educational purposes only.) Test Performed at: [facility] [id number] [id number] Thelma Sierra MD Genital SPECIMEN FROM VAGINA / Unknown 09/17/2023 10:24 AM CDT 09/17/2023 6:30 PM CDT us Alivia Mann DO MICROBIOLOGY - GENERAL ORDERA BLES Final Result [facility] [phone] [facility] [address] [place] [address] * CERV/VAG CYTO AGE BASED SCREEN PAP W CT/NG (06/26/2021 2:54 PM CDT) COMMENT (PAP): [facility] Comment: This order for age-based cervical cancer and STI screening follows ACOG guidelines(PB 168, 140, WNM412). See individual assays for performing site location. CLINICAL INFORMATION [facility] Comment:Information not prov ided LAST MENSTRUAL PERIOD [facility] Comment:INFORMATION NOT PROV IDED PREV PAP: [facility] Comment:INFORMATION NOT PROV IDED PREV BX: [facility] Comment:INFORMATION NOT PROV IDED SOURCE [facility] Comment:Endocervix ADEQUACY: [facility] Comment: Satisfactory for evaluation. Endocervical/transformation zone component present. Age and/or menstrual status not provided PAP INTERP [facility] Comment:Negative for intraep ithelial lesion or malignancy. COMMENT (PAP TEST) [facility] Comment: This Pap test has been evaluated with computer assisted technology. 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 The modifications have not been cleared or approved by the FDA. This assay has been validated pursuant to the CLIA regulations and is used for clinical purposes. For additional information, please refer to https://education.[employer]/faq/KQW354 (This link is being provided for information/ educational purposes only.) Test Performed at: [facility] [address] [place] [address] Dangelo Olsen D.O., MPH SL Genital SWAB OF ENDOCERVIX / Unknown 06/26/2021 2:54 PM CDT 06/27/2021 3:30 AM CDT Renuka Navarrete NP PATHOLOGY/CYTOLOGY ORDERABLES Fi nal Result [facility] [phone] from Last 3 Months or Most Recently Relevant to Health Maintenance Insurance RX [facility] [employer] Care Teams Lathe Turner Relationship Specialty Start Date End Date Aly Burnham [place] [id number] [place] [id number] PCP - General Internal Medicine 07/16/20
--- OUTSIDE RECORDS SUMMARY | 2024-09-27 12:03 | XMS_ITS | Clinical Summary ---
Author Organization [facility] Address [address] [place] [address] Care Team Providers Care Pharmacologist Name Role Phone Unavailable Primary Care Provider Unavailabl e Source Comments [facility],non-owned Affiliates and Associated Physician Practices is amultiple site organization consisting of ambulatory clinics and hospital sitesin [place], [place], [place] and [place]. This disclosure is being madepursuant to the Care Everywhere program and may not contain all information available regarding this patient. Last updated 17.[facility] Allergies Active Allergy Reactions Criticality Noted Date [...] mold, trees, and ragweed 09/20/10 refer to [employer], Waleyrtec 10 mg po q day. 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
[2024-09-27 12:40] VITALS: BP 113/74; PULSE 67; RESP 18; O2SAT 100
== END 2024-09-27 12:41 | disposition home or self-care (01) ==
PROVIDERS: Emergency Provider Physician Assistant
DX: S16.1XXA Strain of muscle, fascia and tendon at neck level, initial encounter (principal); J45.909 Unspecified asthma, uncomplicated; Z97.5 Presence of (intrauterine) contraceptive device; V49.40XA Driver injured in collision with unspecified motor vehicles in traffic accident, initial encounter
CPT/HCPCS: 70450; 72125; 99284; A9270